=== PATIENT | male | born 1980 | race Caucasian/White ===

== ENCOUNTER → 2019-10-22 | Outpatient (CLI) | payer MEDICAID, SELFPAY | PROVIDERS: Family Provider Family Medicine; Visit Provider Social Worker Clinical | DX: F41.0 Panic disorder [episodic paroxysmal anxiety] (principal); F40.10 Social phobia, unspecified | CPT/HCPCS: 90834 ==

== ENCOUNTER → 2019-12-04 10:32 | Outpatient (BNVA) | payer MEDICAID, SELFPAY | PROVIDERS: Family Provider Family Medicine; PCP Family Medicine; Visit Provider Family Medicine | DX: J02.9 Acute pharyngitis, unspecified (principal) | CPT/HCPCS: 87081; 87880 ==

== ENCOUNTER → 2019-12-10 10:40 | Outpatient (BNVA) | payer MEDICAID, SELFPAY | PROVIDERS: Family Provider Family Medicine; PCP Family Medicine; Visit Provider Nurse Practitioner | DX: F41.1 Generalized anxiety disorder (principal); F84.0 Autistic disorder; F40.10 Social phobia, unspecified; F33.1 Major depressive disorder, recurrent, moderate | CPT/HCPCS: 99213 ==

== ENCOUNTER → 2020-02-03 11:30 | Outpatient (BNVA) | payer MEDICAID, SELFPAY ==
[2020-07-28 09:54] VITALS: BP 130/90; BMI 40.6
== END ==
PROVIDERS: PCP Family Medicine; Visit Provider Nurse Practitioner
DX: F41.1 Generalized anxiety disorder (principal); F84.0 Autistic disorder; F40.10 Social phobia, unspecified
CPT/HCPCS: 99214

== ENCOUNTER → 2020-03-10 08:13 | Outpatient (BNVA) | payer MEDICAID, SELFPAY | PROVIDERS: Family Provider Family Medicine; PCP Family Medicine; Visit Provider Nurse Practitioner | DX: F40.10 Social phobia, unspecified (principal); F84.0 Autistic disorder; F41.1 Generalized anxiety disorder | CPT/HCPCS: 99213 ==

== ENCOUNTER → 2020-07-07 08:07 | Outpatient (BNVA) | payer MEDICAID, SELFPAY | PROVIDERS: Family Provider Family Medicine; PCP Family Medicine; Visit Provider Nurse Practitioner | DX: F40.10 Social phobia, unspecified (principal); F84.0 Autistic disorder; F41.1 Generalized anxiety disorder | CPT/HCPCS: 99213 ==

== ENCOUNTER → 2020-07-16 10:03 | Outpatient (BNVA) | payer OTHER, SELFPAY | PROVIDERS: Family Provider Family Medicine; PCP Family Medicine; Visit Provider Nurse Practitioner | DX: F41.1 Generalized anxiety disorder (principal) | CPT/HCPCS: 80061; 83036 ==

== ENCOUNTER → 2020-11-16 08:35 | Outpatient (BNVA) | payer MEDICAID, SELFPAY ==
[2020-07-28 09:54] VITALS: BP 130/90; BMI 40.6
== END ==
PROVIDERS: Family Provider Family Medicine; PCP Family Medicine; Visit Provider Nurse Practitioner
DX: F41.1 Generalized anxiety disorder (principal); F84.0 Autistic disorder; F40.10 Social phobia, unspecified
CPT/HCPCS: 99214

== ENCOUNTER 2020-11-23 10:42 | Outpatient (CLI) | payer MEDICAID, SELFPAY ==
[2020-07-28 09:54] VITALS: BP 130/90; BMI 40.6
--- NOTE | 2020-11-23 | US_ITS ---
WS: [id number] ULTRASOUND ABDOMEN CLINICAL INFORMATION: ELEVATED BILIRUBIN COMPARISON: None. FINDINGS: Liver Size: Mild hepatomegaly Craniocaudal length: 17.6 cm. Echogenicity: Coarse with fatty infiltration Surface nodularity: None. Mass (size and location): None. Bile ducts Intrahepatic ducts: Normal. Common bile duct diameter: 3.5 mm. Gallbladder Cholelithiasis Gallstones: Present Gallbladder sludge: None. Gallbladder wall thickening: None. Pericholecystic fluid: None. Sonographic Lipscomb sign: Absent. Pancreas Normal as visualized. Right kidney: Normal. Hydronephrosis: None. Size: 12.2 cm x 5.4 cm x 5.2 cm Abdominal aorta and IVC Visualized portions are normal. Ascites: None. US/US liver [id number] IMPRESSION: 1. Mild hepatomegaly with fatty infiltration. 2. Cholelithiasis. No gallbladder wall thickening or pericholecystic fluid. 3. Normal common bile duct. 4. No hydronephrosis in right kidney.
== END 2020-11-23 10:43 | disposition home or self-care (01) ==
LOC: RADOUTREAD 11:15
PROVIDERS: PCP Family Medicine; Visit Provider Family Medicine
DX: R16.0 Hepatomegaly, not elsewhere classified (principal); K76.0 Fatty (change of) liver, not elsewhere classified; K80.50 Calculus of bile duct without cholangitis or cholecystitis without obstruction
CPT/HCPCS: 76705

== ENCOUNTER → 2021-05-17 09:49 | Outpatient (BNVA) | payer MEDICAID, SELFPAY ==
[2020-07-28 09:54] VITALS: BP 130/90; BMI 40.6
== END ==
PROVIDERS: PCP Family Medicine; Visit Provider Nurse Practitioner
DX: F41.1 Generalized anxiety disorder (principal); F40.10 Social phobia, unspecified; F84.0 Autistic disorder
CPT/HCPCS: 99214

== ENCOUNTER → 2021-06-02 09:43 | Outpatient (BNVA) | payer OTHER, SELFPAY ==
[2020-07-28 09:54] VITALS: BP 130/90; BMI 40.6
== END ==
PROVIDERS: PCP Family Medicine; Visit Provider Nurse Practitioner
DX: F41.1 Generalized anxiety disorder (principal)
CPT/HCPCS: 80061; 83036

== ENCOUNTER → 2021-08-12 09:48 | Outpatient (BNVA) | payer MEDICAID, SELFPAY ==
[2021-06-03 09:22] VITALS: BP 144/96; BMI 41.8
== END ==
PROVIDERS: PCP Family Medicine; Visit Provider Nurse Practitioner
DX: F84.0 Autistic disorder (principal); F41.1 Generalized anxiety disorder; F40.10 Social phobia, unspecified
CPT/HCPCS: 99214

== ENCOUNTER → 2021-12-22 10:49 | Outpatient (BNVA) | payer MEDICAID, SELFPAY ==
[2021-06-03 09:22] VITALS: BP 144/96; BMI 41.8
== END ==
PROVIDERS: PCP Family Medicine; Visit Provider Nurse Practitioner
DX: F41.1 Generalized anxiety disorder (principal); F40.10 Social phobia, unspecified; F84.0 Autistic disorder
CPT/HCPCS: 99214

== ENCOUNTER → 2022-05-30 12:06 | Outpatient (BNVA) | payer OTHER, SELFPAY ==
[2022-05-03 08:25] VITALS: BP 144/96; BMI 41.8
== END ==
PROVIDERS: PCP Family Medicine; Visit Provider Nurse Practitioner
DX: F41.1 Generalized anxiety disorder (principal)
CPT/HCPCS: 80061; 83036

== ENCOUNTER → 2023-06-06 15:35 | Outpatient (BNVA) | payer OTHER, SELFPAY ==
[2023-02-27 07:10] VITALS: BP 140/88; BMI 40.3
== END ==
PROVIDERS: PCP Family Medicine; Visit Provider Nurse Practitioner
DX: F41.1 Generalized anxiety disorder (principal)
CPT/HCPCS: 80061; 83036

== ENCOUNTER → 2024-06-11 10:03 | Outpatient (BNVA) | payer OTHER, SELFPAY ==
[2024-04-22 10:17] VITALS: BP 169/117; BMI 39.7
== END ==
PROVIDERS: PCP Family Medicine; Visit Provider Psychiatry & Neurology Psychiatry
DX: F33.1 Major depressive disorder, recurrent, moderate (principal); F40.10 Social phobia, unspecified; F41.1 Generalized anxiety disorder
CPT/HCPCS: 80061; 83036

== ENCOUNTER → 2024-09-30 10:53 | Outpatient (BNVA) | payer MEDICAID, SELFPAY ==
[2024-07-19 11:06] VITALS: BP 148/101; BMI 41.3
== END ==
PROVIDERS: PCP Family Medicine; Referring Provider Family Medicine; Visit Provider Nurse Practitioner Family
DX: L57.8 Other skin changes due to chronic exposure to nonionizing radiation (principal); D22.5 Melanocytic nevi of trunk; L91.8 Other hypertrophic disorders of the skin; L81.4 Other melanin hyperpigmentation; L81.2 Freckles
CPT/HCPCS: 17110; 99203

== ENCOUNTER 2024-10-07 11:09 | Emergency (ER) | payer MEDICAID, SELFPAY ==
[2024-07-19 11:06] VITALS: BP 148/101; BMI 41.3
--- NOTE | 2024-10-07 11:11 | XRR_ITS ---
PROCEDURE INFORMATION: Exam: XR Chest Exam date and time: 10/07/2024 11:30 AM Age: 44 years old Clinical indication: Pain; Angina pectoris; Additional info: Cp TECHNIQUE: Imaging protocol: Radiologic exam of the chest. Views: 1 view. COMPARISON: No relevant prior studies available. FINDINGS: Lungs: Unremarkable. No consolidation. Pleural spaces: Unremarkable. No pleural effusion. No pneumothorax. Heart/Mediastinum: Unremarkable. No cardiomegaly. Bones/joints: Unremarkable. XR/XR chest 1V portable [id number] IMPRESSION: No acute findings.
--- NOTE | 2024-10-07 11:11 | ECG_ITS ---
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 Measurements Intervals [place] Rate: 87 P: 45 [place]: 187 QRS: -1 QRSD: 107 T: 67 QT: 351 QTc: 423 Interpretive Statements SINUS RHYTHM MODERATE VOLTAGE CRITERIA FOR LVH, CONSIDER NORMAL VARIANT [MEETS CRITERIA IN ONE OF: R(aVL), S(V1), R(V5), R(V5/V6)+S(V1)] NONSPECIFIC T-WAVE ABNORMALITY No previous ECG available for comparison Electronically Signed On 10-07-2024 19:24:24 MEDICAL UNDERWRITER by Gigi Emery M.D. [id number]
[2024-10-07 11:22] VITALS: BP 201/112; PULSE 91; RESP 18; TEMP 36.7; O2SAT 97; BMI 42.0
[2024-10-07 11:54] LABS: Basophils % 0.4 %; Eosinophils % 0.2 %; Hematocrit 45.2 % (37-53); Lymphocytes # 1.1 10^3/uL (0.8-4.8); Lymphocytes % 20.9 %; Mean Corpuscular HGB Conc 33.6 g/dL (30-55); Mean Corpuscular Hemoglobin 28.5 pg (27-33); Mean Corpuscular Volume 84.8 fl (82-101); Mean Platelet Volume 10.7 fL (7.4-10.4); Monocytes # 0.4 10^3/uL (0.2-0.9); Monocytes % 8.3 %; Neutrophils # 3.73 10^3/uL (1.8-7.7); Nucleated Red Blood Cells % 0 %; Platelet Count 236 10^3/cmm (157-399); Red Blood Count 5.33 10^6/uL (3.85-5.65); Red Cell Distribution Width 13.2 % (12.1-15.1); White Blood Count 5.32 10^3/uL (3.29-11.43)
[2024-10-07 12:11] LABS: INR 0.98 (0.8-1.2)
[2024-10-07 12:15] LABS: Troponin(5th) Baseline 8 ng/L (0-15)
[2024-10-07 12:16] LABS: Alanine Aminotransferase 19 U/L (0-41); Albumin Level 4.6 g/dL (3.5-5.2); Alkaline Phosphatase 72 U/L (40-130); Anion Gap 12.7 (5-19); Aspartate Amino Transferase 11 U/L (0-40); Blood Urea Nitrogen 10 mg/dL (6-20); Calcium 9.4 mg/dL (8.5-10.5); Carbon Dioxide 28 mmol/L (22-29); Chloride 102 mmol/L (98-107); Creatinine Clr Calc Pharmacy 172.6898; Glomerular Filtration Rate 104.1 mL/min (90-130); Glucose 124 mg/dL (65-115); Lipase 25 U/L (13-60); Osmolality Calculated 288 mOsm/kg (285-295); Potassium 3.7 mmol/L (3.5-5.1); Sodium 139 mmol/L (136-145); Total Bilirubin 1.1 mg/dL (0.15-1.2); Total Protein 6.6 g/dL (6.6-8.7)
--- NOTE | 2024-10-07 13:11 | ECG_ITS ---
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 Measurements Intervals [place] Rate: 73 P: 40 FL: 164 QRS: 5 QRSD: 104 T: 53 QT: 359 QTc: 396 Interpretive Statements SINUS RHYTHM Compared to ECG 10/07/2024 11:20:38 T-wave abnormality no longer present Electronically Signed On 10-07-2024 19:35:04 [employer] by Gigi Emery M.D. [id number]
[2024-10-07 14:35] LABS: Troponin 5 2HR 7.68 ng/L (0-15)
[2024-10-07 14:39] LABS: Troponin 5 2HR Delta -0.32 ABS# (0-10)
[2024-10-07 16:24] VITALS: BP 154/103; PULSE 77; O2SAT 99
--- NOTE | 2024-10-07 16:36 | ED_ITS ---
HPI - Chest Pain 2 General: Chief Complaint: Chest Pain Stated Complaint: sharp chest pains Time Seen by Provider: 10/07/24 16:29 Source: patient Mode of arrival: ambulatory Limitations: no limitations History of Present Illness: 44-year-old male states that earlier thi s morning he was having some slight chest pain he states it was a pressure type pain that lasted roughly 30 minutes or so has been resolved since then. Denies any pain currently denies any shortness of breath denies any nausea vomiting denies any worse or improving factors. Associated symptoms: Deny abdominal pain, dyspnea, fever(s), nausea or vomiting Related Data Home Medications Medication Instructions Recorded Confirmed valsartan 160 mg tablet 160 mg PO DAILY 07/11/23 06/11/24 Previous Rx's Medication Instructions Recorded hydroxyzine HCl 25 mg tablet 50 mg (2 x 25 mg) PO ONCE PRN 12/24/20 anxiety #60 tabs sertraline 100 mg tablet (Zoloft) 100 mg PO DAILY #30 tabs 01/10/24 Allergies Allergy/AdvReac Type Severity Reaction Status Date / Time No Known Allergies Allergy Verified 06/11/24 13:41 Review of Systems 2 Const: Denies: fever(s), chills, body aches or change in appetite ENMT: Denies: throat pain or dental pain Card: Reports: chest pain Resp: Denies: dyspnea GI: Denies: abdominal pain, nausea, vomiting or diarrhea Musc: Denies: neck pain or back pain Skin/Breast: Denies: rash Neuro: Denies: headache(s) PFSH ED 2 PFSH: Medical History Psychiatric care Social phobia, unspecified Autistic disorder Generalized anxiety disorder Family History Grandmother Cancer, Onset Age: 37 skin cancer Mother Heart attack Grandfather Heart attack Other Generalized anxiety disorder Social History Smoking and tobacco/nicotine status: never used tobacco/nicotine Second hand smoke exposure: No Alcohol intake: current Alcohol intake frequency: holidays/special occasions only Alcohol type: hard liquor Substance/Drug Use: never Adopted: No Caregiver/support person: No Lives independently: Yes Household members: none Housing: Apartment Marital status: Single Number of children: 0 Highest education level completed: 10th Grade service: No Current occupational status: disabled Pets and animals: Yes Pets & animals: cat(s) Leisure activites: other Leisure activities details: hang out with friends, Play games, movies, Play with cat, comiccon Sexually active: No Do you think of yourself as: Straight/Heterosexual Current gender identity: Male Katerina/Mosque: Mormonism Special katerina needs: No Agree to transfusion: Yes Physical Exam 2 Const: COMMON NORMALS: no acute distress, patient oriented x3 and healthy appearing HENMT: COMMON NORMALS: normocephalic and atraumatic HEAD & SCALP: n ormocephalic and atraumatic Eye: COMMON NORMALS: Equal, round and reactive pupils present and EOMs intact bilaterally PUPIL: Yes Equal, round and reactive pupils present Neck/C-Spine: COMMON NORMALS: full ROM and supple Chest: COMMONS NORMALS: normal inspection of the chest and normal palpation of entire chest wall Resp: COMMON NORMALS: normal respiratory effort, No retractions, No use of accessory muscles and clear to auscultation bilaterally AUSCULTATION: clear to auscultation bilaterally Cardio: COMMON NORMALS: regular rate, regular rhythm and No murmurs present (Cardio) RATE: regular rate RHYTHM: regular rhythm GI: COMMON NORMALS: Normal to inspection, nondistended, normoactive bowel sounds present, Soft to palpation, non-tender and no masses PALPATION: Yes Soft to palpation Extremity: COMMON NORMALS: normal to inspection and full ROM Neuro: COMMON NORMALS: patient oriented x3, moves all extremities and no focal motor deficits Psych: COMMON NORMALS: mental status grossly normal, Normal thought process present and cooperative THOUGHT PROCESS: Normal thought process present Skin: COMMON NORMALS: no rashes or lesions noted and no wounds GENERAL SKIN EXAM: no rashes or lesions noted Course 2 Vital Signs: Vital signs: Vital Signs Temperature 98.1 F 10/07/24 11:22 Pulse Rate 77 10/07/24 16:24 Respiratory Rate 18 10/07/24 11:22 Blood Pressure 154/103 10/07/24 16:24 Pulse Oximetry 99 10/07/24 16:24 Oxygen Delivery Me thod Room Air 10/07/24 16:24 MDM - Chest Pain Medical Decision Making Patient presents for chest pain is atypical in nature his pain is since resolved he is well-appearing here x-ray EKG his troponins are negative no signs of ACS no signs of pulmonary embolism. He is stable for discharge she is follow-up with PCP and return if worsening. Medical Records I reviewed the patient's medical records. Lab Data I reviewed the patient's lab results. 10/07/24 11:46 10/07/24 11:46 Radiology Impressions Chest X-Ray 10/07/24 11:11 IMPRESSION: No acute findings. Laboratory Results WBC 5.32 10^3/uL (3.29-11.43) 10/07/24 11:46 RBC 5.33 10^6/uL (3.85-5.65) 10/07/24 11:46 Hgb 15.20 g/dL (11.27-16.99) 10/07/24 11:46 Hct 45.2 % (37-53) 10/07/24 11:46 MCV 84.8 fl (82-101) 10/07/24 11:46 MCH 28.5 pg (27-33) 10/07/24 11:46 MCHC 33.6 g/dL (30-55) 10/07/24 11:46 RDW 13.2 % (12.1-15.1) 10/07/24 11:46 Plt Count 236 10^3/cmm (157-399) 10/07/24 11:46 MPV 10.7 fL (7.4-10.4) H 10/07/24 11:46 Neut % (Auto) 70.0 % 10/07/24 11:46 Lymph % (Auto) 20.9 % 10/07/24 11:46 [place] % (Auto) 8.3 % 10/07/24 11:46 Eos % (Auto) 0.2 % 10/07/24 11:46 Baso % (Auto) 0.4 % 10/07/24 11:46 Neut # (Auto) 3.73 10^3/uL (1.8-7.7) 10/07/24 11:46 Lymph # (Auto) 1.1 10^3/uL (0.8-4.8) 10/07/24 11:46 [place] # (Auto) 0.4 10^3/uL (0.2-0.9) 10/07/24 11:46 Eos # (Auto) 0.0 10^3/uL (0.0-0.8) 10/07/24 11:46 Baso # (Auto) 0.0 10^3/uL (0.0-0.1) 10/07/24 11:46 Nucleated RBC % (auto) 0 % 10/07/24 11:46 Nucleated RBCs # 0.0 /100WBC 10/07/24 11:46 PT 13.30 SECONDS (12.1-14.9) 10/07/24 11:46 INR 0.98 (0.8-1.2) 10/07/24 11:46 Sodium 139 mmol/L (136-145) 10/07/24 11:46 Potassium 3.7 mmol/L (3.5-5.1) 10/07/24 11:46 Chloride 102 mmol/L (98-107) 10/07/24 11:46 Carbon Dioxide 28 mmol/L (22-29) 10/07/24 11:46 Anion Gap 12.7 (5-19) 10/07/24 11:46 BUN 10 mg/dL (6-20) 10/07/24 11:46 Creatinine 0.8 mg/dL (0.7-1.2) 10/07/24 11:46 GFR Calculation 104.1 mL/min (90-130) 10/07/24 11:46 Glucose 124 mg/dL (65-115) H 10/07/24 11:46 Calculated Osmolality 288 mOsm/kg (285-295) 10/07/24 11:46 Calcium 9.4 mg/dL (8.5-10.5) 10/07/24 11:46 Total Bilirubin 1.1 mg/dL (0.15-1.2) 10/07/24 11:46 AST 11 U/L (0-40) 10/07/24 11:46 ALT 19 U/L (0-41) 10/07/24 11:46 Alkaline Phosphatase 72 U/L (40-130) 10/07/24 11:46 Troponin T Baseline 8 ng/L (0-15) 10/07/24 11:46 Troponin T 120 Minute 7.68 ng/L (0-15) 10/07/24 13:57 Delta Troponin T -0.32 ABS# (0-10) L 10/07/24 13:57 Total Protein 6.6 g/dL (6.6-8.7) 10/07/24 11:46 Albumin 4.6 g/dL (3.5-5.2) 10/07/24 11:46 Globulin 2.0 g/dL (1.3-4.6) 10/07/24 11:46 Lipase 25 U/L (13-60) 10/07/24 11:46 All radiology interpretation(s) finalized by discharge Clincial Decision Support The following clinical decision support tools were used to aid in care of the patient HEART Score -> History: Slightly Suspicous, EKG: Normal, Age: 45-64 yrs, Risk Factors: 1 or 2 Risk Factors, Troponin: Baseline Trop <16 ng/L. Resulting HEART Score: 2. Discharge Plan Discharge Patient Disposition: Home Clinical Impression: Chest pain Condition: Stable Prescriptions: No Action valsartan 160 mg tablet 160 mg PO DAILY sertraline [Zoloft] 100 mg tablet 100 mg PO DAILY Qty: 30 2RF hydroxyzine HCl 25 mg tablet 50 mg PO ONCE PRN (Reason: anxiety) Qty: 60 2RF Discharge Orders: Discharge ED (Routine); Ordered 10/07/24 Ordered By: León Amaro Referrals: Ulises Glover MD [Primary Care Provider] - Discharge Diet: Advance as tolerated Discharge Activity: Resume usual activity Patient Instructions: Chest Pain (ED) Coding Level of Care Code ED Chemistry Manager for Abigail Burden
[2024-10-07 16:44] VITALS: BP 153/95; PULSE 78; O2SAT 99
== END 2024-10-07 16:46 | disposition home or self-care (01) ==
PROVIDERS: Emergency Provider Emergency Medicine; PCP Family Medicine
DX: R07.9 Chest pain, unspecified (principal)
CPT/HCPCS: 36415; 71045; 80053; 83690; 84484; 85025; 85610; 93005; 99285

== ENCOUNTER → 2025-05-14 12:59 | Outpatient (BNVA) | payer OTHER, SELFPAY ==
[2025-01-31 07:35] VITALS: BP 148/101; BMI 41.3
== END ==
PROVIDERS: PCP Family Medicine; Visit Provider Nurse Practitioner
DX: F33.1 Major depressive disorder, recurrent, moderate (principal); F40.10 Social phobia, unspecified; F41.1 Generalized anxiety disorder
CPT/HCPCS: 80061; 83036

== ENCOUNTER → 2025-10-20 08:31 | Outpatient (BNVA) | payer MEDICAID, SELFPAY ==
[2025-07-08 10:32] VITALS: BP 169/100; BMI 40.6
== END ==
PROVIDERS: PCP Family Medicine; Visit Provider Nurse Practitioner Family
DX: L21.8 Other seborrheic dermatitis (principal); L81.4 Other melanin hyperpigmentation; L81.2 Freckles; D22.5 Melanocytic nevi of trunk; L57.8 Other skin changes due to chronic exposure to nonionizing radiation
CPT/HCPCS: 99214